=== PATIENT | male | born 1960 | race Two or more races ===

== ENCOUNTER 2023-04-21 11:21 | Inpatient (IN) | payer OTHER ==
[~2023-04-21] VITALS: Ht 175.3 cm; Wt 104.8 kg
--- NOTE | 2023-04-21 11:55 | NUR ---
BIB C/O SLURRED SPEECH THAT WAS NOTICED 9:30 THIS MORNING.NO FACIAL DROOP OR UNILATERAL DRIFT NOTED.
[2023-04-21 12:10] LABS: BASOPHILS % (AUTO) 0.5 % (0.0-2.0); EOSINOPHILS % (AUTO) 3.4 % (0.0-6.0); HEMATOCRIT 45 % (39-51); HEMOGLOBIN 15.2 g/dL (13.5-17.5); LYMPHOCYTES # (AUTO) 3.1 K/uL (0.8-4.8); LYMPHOCYTES % (AUTO) 44.4 % (20.0-44.0); MEAN CORPUSCULAR HGB CONC 34 g/dl (31.0-36.0); MEAN CORPUSCULAR VOLUME 92 fL (80-96); MONOCYTES # (AUTO) 0.6 K/uL (0.1-1.30); MONOCYTES % (AUTO) 8.5 % (2.0-12.0); NEUTROPHILS # (AUTO) 3.1 K/uL (1.8-8.9); NEUTROPHILS % (AUTO) 43.2 % (43.0-81.0); PLATELET COUNT (AUTO) 188 K/uL (150-450); RED BLOOD CELL COUNT(AUTO) 4.88 MIL/uL (4.5-6.0); WHITE BLOOD COUNT (AUTO) 7.1 K/uL (4.3-11.0)
--- NOTE | 2023-04-21 12:15 | NUR ---
MOVE SHEET SUBMITTED.
[2023-04-21 12:28] LABS: CALCIUM, SERUM 8.8 mg/dL (8.5-10.1); CARBON DIOXIDE 26 mmol/L (21-32); CHLORIDE 103 mmol/L (98-107); CREATININE 1.2 mg/dL (0.6-1.3); GLUCOSE 100 mg/dL (74-106); POTASSIUM 3.1 mmol/L (3.5-5.1); SODIUM SERUM 137 mmol/L (136-145); UREA NITROGEN, BLOOD 16 mg/dL (7-18)
[2023-04-21 12:41] LABS: ALANINE AMINOTRANSFERASE 26 U/L (12-78); ALBUMIN 3.7 g/dL (3.4-5.0); ALKALINE PHOSPHATASE 67 U/L (46-116); ASPARTATE AMINOTRANSFERASE 14 U/L (15-37); BILIRUBIN,DIRECT 0.1 mg/dL (0.0-0.2); BILIRUBIN,TOTAL 0.6 mg/dL (0.2-1.0); TOTAL PROTEIN, SERUM 7.4 g/dL (6.4-8.2)
[2023-04-21] MEDS ORDERED: POTASSIUM CHLORIDE 20 MEQ POWDER PACKET PO ONE (13:00)
--- NOTE | 2023-04-21 13:07 | NUR ---
EPIC BUILDING AND CONSTRUCTION MANAGER PAGED.
[2023-04-21] MEDS ORDERED: POTASSIUM CHLORIDE 20 MEQ POWDER PACKET ONE (13:09)
--- NOTE | 2023-04-21 13:12 | NUR ---
TAKEN TO CT
[2023-04-21] MEDS ORDERED: ONDANSETRON HCL/PF 4 MG/2 ML VIAL IVP PRN (13:30)
[2023-04-21] MEDS ORDERED: Z GUARD REMEDY 4 OZ OINT TP PRN (13:30)
[2023-04-21] MEDS ORDERED: ENOXAPARIN SODIUM 40 MG/0.4 ML DISP.SYRIN SQ ONE (13:30)
[2023-04-21] MEDS ORDERED: ACETAMINOPHEN 325 MG TABLET PO PRN (13:30)
[2023-04-21] MEDS ORDERED: ASPIRIN 325 MG TABLET PO ONE (14:00)
--- NOTE | 2023-04-21 14:46 | NUR ---
GOT BED 327-1 ADMITTING INFORMED.
--- NOTE | 2023-04-21 14:52 | NUR ---
REPORT GIVEN TO RAINER MOLINA
--- NOTE | 2023-04-21 15:24 | NUR ---
MOVED TO INPATIENT ROOM SAFELY PER ACLS PROTOCOL
--- NOTE | 2023-04-21 15:45 | NUR ---
metal machine operator Notes Received patient from ER via gurney. Patient is a/o x4, able to make needs known. Patient oriented to room and how to use the call light. On room air, breathing even and unlabored. No SOB or s/s of distress noted. All belongings accounted for, belongings list signed. IV access on RAC #20G SL, patent, intact and flushing well. Skin assessment done, skin intact. Lungs clear bilaterally upon auscultation. Bowel sounds present. Safety precautions in place: bed in low, locked position; siderails up x 2. Call light within reach. Will continue to monitor the patient.
[2023-04-21 16:00] VITALS: BP 153/85
[2023-04-21 16:36] VITALS: BP 153/85
--- NOTE | 2023-04-21 18:58 | NUR ---
RN Closing Notes Patient is awake, a/o x4, able to make needs known. On room air, breathing even and unlabored. No SOB or s/s of distress noted. With IV access on RAC #20G SL, patent, intact and flushing well. Vital signs checked and recorded. Due medications given. All needs attended and anticipated. Safety precautions in place: bed in low, locked position; siderails up x 2. Call light within reach. Will endorse to cooker operator nurse.
[2023-04-21] MEDS ORDERED: POTASSIUM CHLORIDE 20 MEQ TAB.PRT.SR PO ONE (19:00)
--- NOTE | 2023-04-21 19:30 | NUR ---
noc rn opening patient was in the restroom when I did my rounds. no slurred speech noted. a/ox4, no s/s of apparent distress in room air, stable gait. patient is asking something for sleep and per him he takes XANAX at home. Hospitalist, Reggie Berrios ordered XANAX 2mg PO q HS PRN for sleep, order read back. safety in place-- bed in lowest, locked position, bed rails up X2, call light within reach. Patient encouraged with the use of call light. will continue with the plan of care for patient.
[2023-04-21 20:00] VITALS: BP 146/76
[2023-04-21] MEDS ORDERED: ALPRAZOLAM 1 MG TABLET PO PRN (20:00)
--- NOTE | 2023-04-21 21:00 | NUR ---
melissa rn note- PRN Patient asked for his evening meds early. Given the ATORVASTATIN 4omg and Xanax 2mg as ordered PRN HS for sleep per patient request.
[2023-04-21] MEDS ORDERED: ATORVASTATIN 40 MG TABLET PO SCH (22:00)
[2023-04-22] VITALS (9 sets, daily range): BP systolic 121–141; BP diastolic 71–79
[2023-04-22 06:24] LABS: BASOPHILS % (AUTO) 0.4 % (0.0-2.0); EOSINOPHILS % (AUTO) 4.9 % (0.0-6.0); HEMATOCRIT 42 % (39-51); HEMOGLOBIN 14.5 g/dL (13.5-17.5); LYMPHOCYTES # (AUTO) 2.6 K/uL (0.8-4.8); LYMPHOCYTES % (AUTO) 42.6 % (20.0-44.0); MEAN CORPUSCULAR HGB CONC 34 g/dl (31.0-36.0); MEAN CORPUSCULAR VOLUME 91 fL (80-96); MONOCYTES # (AUTO) 0.4 K/uL (0.1-1.30); MONOCYTES % (AUTO) 6.6 % (2.0-12.0); NEUTROPHILS # (AUTO) 2.8 K/uL (1.8-8.9); NEUTROPHILS % (AUTO) 45.5 % (43.0-81.0); PLATELET COUNT (AUTO) 184 K/uL (150-450); RED BLOOD CELL COUNT(AUTO) 4.61 MIL/uL (4.5-6.0); WHITE BLOOD COUNT (AUTO) 6.2 K/uL (4.3-11.0)
--- NOTE | 2023-04-22 06:42 | NUR ---
noc rn closing note Patient in bed with eyes closed, easy to arouse. a/ox4. no s/s of apparent distress in room air. NIHSS score=0 on my shift. no c/o pain. no fluids running. all needs attended. all scheduled medications administered. safety kept in place throughout shift. will endorse to morning shift rn for continuity of patient care.
[2023-04-22 07:11] LABS: ALBUMIN 3.3 g/dL (3.4-5.0); BILIRUBIN,TOTAL 0.5 mg/dL (0.2-1.0); CALCIUM, SERUM 8.5 mg/dL (8.5-10.1); MAGNESIUM 2.2 mg/dL (1.8-2.4); PHOSPHORUS 3.9 mg/dL (2.5-4.9); POTASSIUM 3.1 mmol/L (3.5-5.1); TOTAL PROTEIN, SERUM 6.7 g/dL (6.4-8.2)
--- NOTE | 2023-04-22 07:30 | NUR ---
chain splitter Opening Note Pt care report received from rn shift mgr. A/O*4, follow command, and clear speech. Denied pain and no SOB, no distress. Skin warm, dry, and intact. Respiration unlabored, even and regular. Lung sounds clear bilaterally. secured entrance monitor captured Sinus destinee at 64bpm. Bowel sounds present all quadrants. Hand aircraft cleaner equally strong both hands. CMS intact. IV site right AC 18G SL. All safety precaution in place. bed in low position, locked, call lights and table in reach, and side rails up*2. Will continue monitoring.
[2023-04-22] MEDS ORDERED: ASPIRIN 325 MG TABLET PO SCH (09:00)
[2023-04-22] MEDS ORDERED: POTASSIUM CHLORIDE 20 MEQ TAB.PRT.SR PO ONE (10:00)
[2023-04-22] MEDS ORDERED: LISI10TA29 PO (10:54)
[2023-04-22] MEDS ORDERED: ATOR40TA PO (10:54)
[2023-04-22] MEDS ORDERED: ASPI-992 PO (10:54)
[2023-04-22 11:37] LABS: CHOLESTEROL 194 mg/dL (<200); HDL CHOLESTEROL 48 mg/dL (40-60); LDL 114 mg/dL (0-99); TRIGLYCERIDES 159 mg/dL (30-150)
--- NOTE | 2023-04-22 18:54 | NUR ---
received call from Dr. Salazar that echocardiogram is normal and pt can be discharged. Pt and nurse informed.
--- NOTE | 2023-04-22 18:59 | NUR ---
ETHYLBENZENE CRACKING SUPERVISOR NOTE PATIENT DISCHARGED HOME IN STABLE CONDITION. ECHOCARDIOGRAM NEGATIVE. PATIENT REMAINS AWAKE, ALERT AND ORIENTED X4, VERBALLY RESPONSIVE AND ABLE TO MAKE NEEDS KNOWN. NO SIGNS OF ACUTE DISTRESS NOTED. DENIES ANY PAIN OR DISCOMFORT. IV ACCESS REMOVED, PRESSURE DRESSING APPLIED TO SITE. ID BAND REMOVED. EXIT CARE FOLDER GIVEN TO PATIENT. HEALTH TEACHINGS AND DISCHARGE INSTRUCTIONS PROVIDED TO PATIENT, WITH VERBALIZATION OF UNDERSTANDING. PATIENT LEFT UNIT @1845, AMBULATORY ACCOMPANIED BY [facility]. CN AWARE OF DISCHARGE.
== END 2023-04-22 18:59 | disposition home or self-care (01) | DRG 69 ==
LOC: ER 11:28 → TELE 14:59
PROVIDERS: ADMIT Internal Medicine; ATTEND Internal Medicine
DX: G45.9 Transient cerebral ischemic attack, unspecified (principal); I10 Essential (primary) hypertension; E11.9 Type 2 diabetes mellitus without complications
CPT/HCPCS: 36415; 70450-TC; 71045-TC; 80048-TC; 80053-TC; 80061-TC; 80076-TC; 82962-TC; 83735-TC; 83880; 84100-TC; 84484-TC; 85025-TC; 87081-TC; 93307-TC; 93880-TC; G0378; J1650